=== PATIENT | male | born 1950 | race Caucasian/White ===

== ENCOUNTER → 2018-03-23 | Outpatient (CLI) | payer OTHER ==
--- NOTE | 2018-03-23 13:17 | RADIOLOGY REPORT (SQ) ---
EXAM DESCRIPTION: MRI ABDOMEN COMBO COMPLETED DATE/TIME: 03/23/2018 11:23 am REASON FOR STUDY: OTHER SPECIFIED DISORDERS OF KIDNEY AND URETER (N28.89) N28.89 OTHER SPECIFIED DI SORDERS OF KIDNEY AND URETER COMPARISON: CT abdomen pelvis 10/14/2012 Renal ultrasound 12/31/2016 [facility] TECHNIQUE: Multiplanar multisequence imaging performed without and with contrast including sagittal, axial and coronal T2, axial T1, axial gradient fat sat T1, axial, sagittal and coronal fat sat T1 po st contrast. CONTRAST TYPE AND DOSE: 20 mL Dotarem. RENAL FUNCTION: Estimated GFR 56 LIMITATIONS: None. FINDINGS: LIVER: Normal size. No masses. No dilated ducts. CBD normal. SPLEEN: Normal size. No focal lesions. PANCREAS: No masses. No adjacent inflammation or peripancreatic fluid collections. Pancreatic duct no t dilated. GALLBLADDER: 2.3 cm stone in the gallbladder fundus. No gallbladder wall thickening or pericholecyst ic fluid. ADRENAL GLANDS: 1 cm adenoma right adrenal gland best shown on axial T1 out of phase series 102, imag e 18. Remainder of the right and left adrenal gland are otherwise unremarkable. RIGHT KIDNEY AND URETER: 10 cm in length with normal cortical thickness and enhancement. Simple cyst 4 cm diameter right upper pole kidney. Septated cyst without worrisome contrast enhancement right l ower pole kidney, 3 x 2.5 x 3.4 cm in size. No worrisome solid masses. No hydronephrosis. LEFT KIDNEY AND URETER: 10 cm in length with normal cortical thickness and enhancement. There are mu ltiple subcentimeter cysts throughout the cortex. 4.3 cm upper pole simple cyst. 1.6 cm upper pole simple cyst. No worrisome solid masses. No hydronephrosis. AORTA AND VESSELS: No aneurysm. No dissection. Renal arteries, SMA, celiac without stenosis. RETROPERITONEUM: No retroperitoneal adenopathy, hemorrhage or masses. BOWEL: Not well seen ABDOMINAL WALL AND PERITONEUM: No hernias. No free fluid. BONES: Benign hemangioma L4 vertebral body. OTHER: No other significant finding. IMPRESSION: Septated cyst right lower pole kidney without worrisome contrast enhancement or mural no dule. TECHNICAL DOCUMENTATION: JOB ID: [id number]- All Rights Reserved Reading location - IP/workstation name: [email or web address]
== END ==
LOC: RAD 09:58
PROVIDERS: ATTEND Family Medicine
DX: N28.89 Other specified disorders of kidney and ureter (principal)
CPT/HCPCS: 82565; 74183; A9576